=== PATIENT | male | born 1995 ===

== ENCOUNTER 2017-03-31 19:16 | Inpatient (IN) | payer MEDICAID ==
[2017-03-31] MEDS ORDERED: LORazepam 1 MG TAB PO PRN (20:55)
[2017-03-31] MEDS ORDERED: MAG HYDROX/AL HYDROX/SIMETH 30 ML CUP PO PRN (20:55)
[2017-03-31] MEDS ORDERED: MAGNESIUM HYDROXIDE 2,400 MG/10 ML CUP PO PRN (20:55)
[2017-03-31] MEDS ORDERED: ACETAMINOPHEN TAB 325 MG TAB PO PRN (20:55)
[2017-03-31] MEDS ORDERED: ZIPRASIDONE 20 MG VIAL IM PRN (20:55)
[2017-03-31] MEDS ORDERED: LORazepam 2 MG/ML SYRINGE IM PRN (21:24)
[2017-03-31 23:22] VITALS: BMI 24.4
--- NOTE | 2017-04-01 01:02 | P.MDCNMH ---
History of Present Illness H&P Date: 03/31/17 (patient was seent at 11:00PM) Chief Complaint: Suicidal ideation This patient is 21 years old male with significant history of depression/major history of substance abuse was brought into the psychiatric unit with suicidal ideation, patient allegedly threatened to stab himself in the neck " to end it ". He also attempted to slash his left wrist patient was cleared medically and brought to the psychiatry unit for admission, upon arrival he Is pleasant, cooperative, calm and currently denies suicidal thoughts. Review of Systems Constitutional: Patient reports no fever, no chills, no weight changes, no change in appetite Eyes: Patient reports no double vision, no visual changes ENT: Patient reports no rhinorrhea, no post nasal drip, no sore throat Cardiovascular: Patient reports no chest, no edema, no palpitations, no syncope , no orthopnea, no paroxysmal nocturnal dyspnea. Respiratory: Patient reports no dyspnea, no cough, no wheeze Gastrointestinal: Patient reports no nausea, no vomiting, no constipation, no diarrhea Genitourinary: Patient reports no dysuria, no urinary frequency, no hematuria. Musculoskeletal: Patient reports no unusual joint pain, no joint swelling or weakness. Patient reports no muscular pain. Psychiatric: Patient reports no changes in mood, no sleeping problems. Patient reports no changes in memory. Endocrine: Patient reports no thirst, no polyuria, no cold intolerance, no heat intolerance. Neurological: Patient reports no unusual paresthesias, no seizures, no paresis , no paralysis, no facila droop, no headache. Heme/Lymphatic: Patient reports no easy bruising, no bleeding tendency, no lymphadenopathy. Allergic/ Immunologic: Patient reports no recent allergic reactions or immunologic history. Skin: Patient reports no rashes, he has superficial lacertion on L forearm/ Past Medical History Additional Past Medical History / Comment(s): major Depression. extodermal dysplasia History of Any Multi-Drug Resistant Organisms: None Reported Past Surgical History: No Surgical Hx Reported Past Anesthesia/Blood Transfusion Reactions: No Reported Reaction Past Psychological History: Depression Past Alcohol Use History: None Reported Past Drug Use History: None Reported, Cocaine, Marijuana, Opiates Additional Drug Use History / Comment(s): tabacco chewing - Past Family History Father Family Medical History: Diabetes Mellitus Medications and Allergies Home Medications Medication Instructions Recorded Confirmed Type Melatonin 10 mg PO HS 03/31/17 03/31/17 History OLANZapine [ZyPREXA] 7.5 mg PO HS 03/31/17 03/31/17 History OXcarbazepine [Trileptal] 150 mg PO BID 03/31/17 03/31/17 History Vitamin D3(Unknown Dose) 1 tab PO DAILY 03/31/17 03/31/17 History Allergies Allergy/AdvReac Type Severity Reaction Status Date / Time No Known Allergies Allergy Verified 03/31/17 22:02 Physical Exam Vitals: Intake and Output 03/31/17 03/31/17 04/01/17 14:59 22:59 06:59 Other: Weight 77.2 kg Patient Weight 04/01/17 06:59 Weight 77.2 kg - Constitutional General appearance: cooperative, no disheveled, no no acute distress - EENT Eyes: EOMI, PERRLA, fundus normal, dentition normal, normal appearance ENT: hearing grossly normal, normal oropharynx Ears: bilateral: normal, negative: bullous, dull, erythema - Neck Neck: no lymphadenopathy, normal ROM, no rigidity, no stridor, no thyromegaly Carotids: bilateral: upstroke normal Thyroid: bilateral: normal size - Respiratory Respiratory: bilateral: CTA, negative: rales, rhonchi, wheezing - Cardiovascular Rhythm: regular Heart sounds: normal: S1, S2 Abnormal Heart Sounds: no systolic murmur, no diastolic murmur, no S3 Gallop, no S4 Gallop - Gastrointestinal General gastrointestinal: no distended, no hepatomegaly, normal bowel sounds, no rigid, soft, no tenderness - Integumentary Integumentary: no cellulitis, no cyanotic, no jaundiced, normal, normal turgor, no rash - Neurologic Neurologic: CNII-XII intact - Musculoskeletal Musculoskeletal: gait normal, no generalized weakness, strength equal bilaterally - Psychiatric Psychiatric: A&O x's 3, appropriate affect Cranial Nerve Examination - Cranial Nerves Cranial Nerve I- Olfactory: Intact Cranial Nerve II- Optic: Intact Cranial Nerve III- Oculomotor: Intact Cranial Nerve IV- Trochlear: Intact Cranial Nerve V- Trigeminal: Intact Cranial Nerve - Abducens: Intact Cranial Nerve VII- Facial: Intact Cranial Nerve VIII- Auditory: Intact Cranial Nerve IX- Glossopharyngeal: Intact Cranial Nerve X- Vagus: Intact Cranial Nerve XI- Accessory: Intact Cranial Nerve XII- Hypoglossal: Intact Results Results: normal : HGB,WBC, Na, K, BUN and CR Assessment and Plan (1) Suicidal ideations Narrative/Plan: Treatment as per psychiatrY, patient is on psych suicide precautions however currently denied to me any suicidal thoughts. Status: Acute (2) Cocaine abuse Narrative/Plan: He has long-standing history of cocaine abuse was recent use was a month ago he came to be clean for 1 months. Patient was counseled extensively regarding cocaine cessation for more than 20 minutes Status: Chronic (3) Nicotine addiction Narrative/Plan: Patient chews tobacco for 3-4 years. He was counseled again extensively regarding tobacco cessation for more than 20 minutes Status: Chronic (4) Opiate addiction Narrative/Plan: Long-standing history of morphine abuse again he states he is clean for 1 months and was counseled as well regarding opiate cessation Status: Chronic
[2017-04-01] MEDS: NICOTINE 14MG/24HR PATCH TRANSDERM SCH (09:39)
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
[2017-04-01] MEDS ORDERED: hydrOXYzine PAMOATE 25 MG CAP PO PRN (10:20)
[2017-04-01] MEDS: OLANZapine 10 MG TAB PO SCH (20:59)
[2017-04-01] MEDS: MELATONIN 5 MG TABLET PO SCH (20:59)
[2017-04-01] MEDS ORDERED: OXcarbazepine 300 MG TAB PO SCH (21:00)
[2017-04-01] MEDS ORDERED: OXcarbazepine 150 MG TAB PO SCH ×3 (21:00)
[2017-04-02 06:47] VITALS: RESP 16
[2017-04-02] MEDS: NICOTINE 14MG/24HR PATCH TRANSDERM SCH (08:58)
[2017-04-02] MEDS ORDERED: OXcarbazepine 150 MG TAB PO SCH (09:00)
[2017-04-02] MEDS ORDERED: OXcarbazepine 150 MG TAB PO STA (12:06)
--- NOTE | 2017-04-02 12:13 | P.PN ---
Progress Note - Text INTERVERAL HISTORY: Patient was discussed at treatment team meeting, review of record, met with patient. Staff reports that he is participating in groups, appropriately. Patient reports that he is feeling better not suicidal, no anger, no depression. Patient denies any side effects to the medication. He does report a bit of anxiety when he is in the groups and it's his turn to speak, but once he begins to speak his anxiety goes away. He spoke to his aunt and she is willing that he comes back to stay with her as long as he agrees to get a job or go to school and to help around the house. He says he agrees to this. TSH, WNL UDS from hospital transfer negative Trileptal, <1 MENTAL STATUS EXAM: Patient alert and oriented 3, good eye contact, fair groomed in hospital attire/street clothing. Speech normal volume, rate and production. Coherent, logical and goal directed thought process. No JORDYN, no FOI. No TB/TW/ TI Denied auditory and visual hallucinations. Denied paranoid ideation, delusions or IOR. Memory intact Cognition average Mood euthymic, affect full range, congruent with mood. Denies suicidal ideation, denies homicidal ideation. Insight limited; Judgment grossly intact for treatment purposes Mood disorder, unspecified R/O personality disorder, unspecified PLAN: Continue inpatient psychiatric admission, for safety and treatment purposes. Suicide precaution every 15 minute checks. Hospitalist to address physical conditions, manage. Verified history with patient's aunt, check on [facility] history. Continue Zyprexa 10 mg daily at bedtime Increase Trileptal 300 mg twice a day Melatonin 5 mg daily at bedtime Vistaril 25 mg 4 times a day when necessary anxiety/panic Milieu therapy Social work to begin discharge planning, family conference..
[2017-04-02] MEDS: OLANZapine 10 MG TAB PO SCH (20:11)
[2017-04-02] MEDS: OXcarbazepine 300 MG TAB PO SCH (20:11)
[2017-04-02] MEDS: MELATONIN 5 MG TABLET PO SCH (20:11)
[2017-04-03 06:36] VITALS: BP 114/56; PULSE 64; TEMP 97.7
[2017-04-03] MEDS: NICOTINE 14MG/24HR PATCH TRANSDERM SCH (08:23)
[2017-04-03] MEDS: OXcarbazepine 300 MG TAB PO SCH (08:23)
--- NOTE | 2017-04-03 10:40 | P.DS ---
Providers Date of admission: 03/31/17 19:16 Expected date of discharge: 04/03/17 Attending physician: Cierra Bone MD Consults: 03/31/17 20:55 Consult Physician Routine Consulting Provider: Ayad Hatfield Consult Reason/Comments: H&P, with medical followup Do you want consulting provider notified?: Yes Primary care physician: Stated None Hospital Course: BRIEF ADMISSION HISTORY: 21-year-old single male who was admitted to the mental health unit through urgency room on a petition by his aunt . The patient presents with report that he was having a bad day and that his on petitioned him. States that it was really only for 5 minutes where he was saying he wanted to kill himself by stabbing himself in the neck. Patient states that he doesn't recall why he was upset, says that this happens approximately once a week. Patient was willing for treatment so we allowed him to sign in voluntarily. HOSPITAL COURSE: Patient with above history of significant impulsive dyscontrol , with threatening to kill himself and then abruptly having no problems not even recalling what he was upset about. States that when he was hospitalized at [facility] that they gave him Zyprexa 10 mg, and Trileptal 200 mg twice a day. However when he was discharged they reduced both medications due to sedation. Patient felt that each day he seemed to have more problems which led to him having these outbursts about once a week. He does not recall being overly sedated at the higher dose. We restarted the Zyprexa at 10 mg at bedtime. And restarted Trileptal at 300 twice a day since Trileptal does not calm in a 200 mg tablet. He reported feeling better denies suicidal ideation. No irritation or anger he was able to participate in all the groups even though he had some anxiety just prior to having to speak but once he spoke he felt fine. He spoke to his aunt to agreed that he could come back and live with her as long as he either gets a job, or goes to school, but also help around the house with chores. He agreed so discharge planning was for him to return to his aunt' s house. No suicidal ideation, no psychosis, no edinson or hypomania, no depression. Euthymic mood with full affect normal intensity. Mood disorder, unspecified R/O personality disorder, unspecified PLAN: Discharge today. to arrange follow up care. Discharge medications include: Zyprexa 10 mg daily at bedtime. Trileptal 300 mg twice a day. Vistaril 25 mg 4 times a day when necessary for panic or anxiety. Pertinent Studies: none Procedures: none Patient Condition at Discharge: Good Plan - Discharge Summary New Discharge Prescriptions: New hydrOXYzine PAMOATE [Vistaril] 25 mg PO Q8HR PRN #120 cap PRN Reason: Anxiety OLANZapine [ZyPREXA] 10 mg PO HS #30 tab OXcarbazepine [Trileptal] 300 mg PO BID #60 tab Continue Melatonin 10 mg PO HS Vitamin D3(Unknown Dose) 1 tab PO DAILY Discontinued OXcarbazepine [Trileptal] 150 mg PO BID OLANZapine [ZyPREXA] 7.5 mg PO HS Discharge Medication List Melatonin 10 mg PO HS 03/31/17 [History] Vitamin D3(Unknown Dose) 1 tab PO DAILY 03/31/17 [History] OLANZapine [ZyPREXA] 10 mg PO HS #30 tab 04/03/17 [Rx] OXcarbazepine [Trileptal] 300 mg PO BID #60 tab 04/03/17 [Rx] hydrOXYzine PAMOATE [Vistaril] 25 mg PO Q8HR PRN #120 cap 04/03/17 [Rx] Follow up Appointment(s)/Referral(s): Nicole MCKINNEY [Other] - 04/06/17 12:00 pm ([facility]) Discharge Disposition: HOME SELF-CARE
== END 2017-04-03 12:50 | disposition home or self-care (01) | DRG 885 ==
LOC: 3MHU 19:16 → EDBD 19:16
PROVIDERS: ADMIT Psychiatry & Neurology Addiction Medicine; ATTEND Psychiatry & Neurology Addiction Medicine
DX: F39 Unspecified mood [affective] disorder (principal); R45.851 Suicidal ideations; F41.9 Anxiety disorder, unspecified; F41.0 Panic disorder [episodic paroxysmal anxiety]; F60.9 Personality disorder, unspecified; R45.87 Impulsiveness; F19.90 Other psychoactive substance use, unspecified, uncomplicated; Z79.899 Other long term (current) drug therapy; Z81.1 Family history of alcohol abuse and dependence; Z81.3 Family history of other psychoactive substance abuse and dependence
CPT/HCPCS: 80183; 84443